=== PATIENT | male | born 1975 | race Two or more races ===

== ENCOUNTER 2018-06-28 14:22 | Emergency (ER) | payer MEDICAID ==
[~2018-06-28] VITALS: Ht 165.1 cm; Wt 59.1 kg
[2018-06-28 14:43] VITALS: Ht 165.1 cm; Wt 59.1 kg
[2018-06-28] MEDS ORDERED: VOLTAREN75 MG PO (16:10)
[2018-06-28] MEDS ORDERED: PENICILLIN V P500 MG PO (16:10)
[2018-06-28 16:50] VITALS: BP 133/81
== END 2018-06-28 16:50 | disposition home or self-care (01) ==
LOC: D.ER 14:22
DX: K04.7 Periapical abscess without sinus (principal); K08.89 Other specified disorders of teeth and supporting structures